=== PATIENT | male | born 1990 | race Caucasian/White ===

== ENCOUNTER 2020-03-13 15:20 | Emergency (ER) | payer OTHER ==
[2020-03-13 15:26] VITALS: RESP 20; TEMP 98.8
[2020-03-13] MEDS ORDERED: KETOROLAC 30 MG/ML 1 ML VIAL IM STA (15:39)
[2020-03-13] MEDS ORDERED: ACET/COD 300 MG/30 MG STARTER PACK 6 TAB BTL PO STA (15:39)
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
[2020-03-13 17:58] VITALS: BP 135/85; PULSE 81
== END 2020-03-13 18:06 | disposition home or self-care (01) ==
LOC: EC 15:20
DX: S82.51XA Displaced fracture of medial malleolus of right tibia, initial encounter for closed fracture (principal); S82.831A Other fracture of upper and lower end of right fibula, initial encounter for closed fracture; F17.200 Nicotine dependence, unspecified, uncomplicated; V28.4XXA Motorcycle driver injured in noncollision transport accident in traffic accident, initial encounter; Y93.55 Activity, bike riding
CPT/HCPCS: 73590; 73562; 73610; 99284; 29505; 96372; J1885

== ENCOUNTER → 2020-03-15 | Outpatient (CLI) | payer SELFPAY ==
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
== END | disposition home or self-care (01) ==
LOC: RADCTMAIN 09:41
PROVIDERS: ATTEND Orthopaedic Surgery Orthopaedic Surgery of the Spine
DX: S82.861A Displaced Maisonneuve's fracture of right leg, initial encounter for closed fracture (principal); S82.891A Other fracture of right lower leg, initial encounter for closed fracture; S82.51XA Displaced fracture of medial malleolus of right tibia, initial encounter for closed fracture; S93.431A Sprain of tibiofibular ligament of right ankle, initial encounter

== ENCOUNTER → 2020-03-21 | Outpatient (CLI) | payer SELFPAY | END | disposition home or self-care (01) | LOC: LABWHC1 11:22 | PROVIDERS: ATTEND Orthopaedic Surgery | DX: U07.1 COVID-19 (principal) | CPT/HCPCS: 87635 ==

== ENCOUNTER 2020-03-23 06:37 | Day surgery (SDC) | payer OTHER ==
[2020-03-21 15:54] VITALS: BMI 32.1
[~2020-03-23 06:37] MED LIST: HYDROmorphone 0.5 MG/0.5 ML SYRINGE IVP PRN; LACTATED RINGERS 1,000 ML IV SCH; LIDOCAINE 1% (10MG/ML) FOR IV START INTRADERMA PRN; ONDANSETRON 4 MG/2 ML VIAL IVP ONE
[2020-03-23] MEDS ORDERED: fentaNYL (PF) 50 MCG/ML 2 ML AMP IVP ONE (07:07)
[2020-03-23] MEDS ORDERED: MIDAZOLAM 2 MG/2 ML VIAL IVP ONE (07:07)
[2020-03-23] MEDS ORDERED: DEXAMETHASONE SOD PHOSPHATE 10 MG/ML 1 ML VIAL IV ONE (07:21)
[2020-03-23] MEDS ORDERED: MIDAZOLAM 2 MG/2 ML VIAL ONE (07:56)
[2020-03-23] MEDS ORDERED: PROPOFOL 10 MG/ML 20 ML VIAL IV ONE (07:56)
[2020-03-23] MEDS ORDERED: KETOROLAC 30 MG/ML 1 ML VIAL ONE (07:56)
[2020-03-23] MEDS ORDERED: fentaNYL (PF) 50 MCG/ML 2 ML AMP ONE (07:56)
[2020-03-23] MEDS ORDERED: ROPIVACAINE 5 MG/ML 30 ML VIAL ONE (07:56)
[2020-03-23] MEDS ORDERED: LIDOCAINE 2%-EPI 1:100,000 20 ML VIAL ONE (07:56)
[2020-03-23] MEDS ORDERED: LIDOCAINE 1% INJ 10MG/ML (20 ML MDV) ONE (07:56)
--- NOTE | 2020-03-23 08:00 | P.ANPRN ---
Procedure Note - Anesthesia - Nerve Block Performed Right Popliteal Single Time Out Performed: Yes Date of Procedure: 03/23/20 Procedure Start Time: 07:07 Procedure Stop Time: 07:14 Location of Patient: PreOp Indication: Acute Post-Operative Pain, Dx/Pain Location (Right Ankle Pain) Sedation Type: Sedate with meaningful contact maintained Preparation: Sterile Prep Position: Supine Catheter: None Needle Types: Pajunk Needle Gauge: 18 Ultrasound used to visualize needle placement: Yes Ultrasound used to observe medication spread: Yes Injectate: Other (see comment) (10ml 0.5% Ropivacaine + 10ml 2% Lidocaine with 1:200,000 epi + 4mg Dexamethasone) Blood Aspirated: No Pain Paresthesia on Injection Noted: No Resistance on Injection: Normal Image Stored and Saved: Yes Events: Uneventful and Well Tolerated
--- NOTE | 2020-03-23 08:01 | P.ANPRN ---
Procedure Note - Anesthesia - Nerve Block Performed Right Adductor Canal Single Time Out Performed: Yes Date of Procedure: 03/23/20 Procedure Start Time: :07 Procedure Stop Time: 07:14 Location of Patient: PreOp Indication: Acute Post-Operative Pain, Dx/Pain Location (Right Ankle Pain), Requested by Surgeon Sedation Type: Sedate with meaningful contact maintained Preparation: Sterile Prep Position: Supine Catheter: None Needle Types: Pajunk Needle Gauge: 18 Ultrasound used to visualize needle placement: Yes Ultrasound used to observe medication spread: Yes Injectate: Other (see comment) (10ml 0.5% Ropivacaine + 10ml 2% Lidocaine with 1:200,000 epi + 4mg Dexamethasone) Blood Aspirated: No Pain Paresthesia on Injection Noted: No Resistance on Injection: Normal Image Stored and Saved: Yes Events: Uneventful and Well Tolerated
[2020-03-23] MEDS ORDERED: LACTATED RINGERS 1,000 ML IV ONE (09:20)
--- NOTE | 2020-03-23 09:29 | FL ---
EXAMINATION TYPE: FL guidance operating room, XR ankle limited RT DATE OF EXAM: 03/23/2020 CLINICAL HISTORY: Right ankle fracture. TECHNIQUE: Fluoroscopy. Limited intraoperative views right ankle. COMPARISON: Right ankle x-ray March 13, 2020. FINDINGS: Fluoroscopic guidance was provided during open reduction internal fixation procedure perfo rmed by Dr. Diaz. A total of 1.17 minute of fluoroscopic time was utilized during the procedure and 6 spot intraoperative images are acquired. Intraoperative images obtained show placement of lateral fixating plate through the distal fibular di aphysis with single radiodense fixating screw through the distal tibia and more inferior radiolucent distal fixating screw. There is placement of fixating screw through the medial malleolus displaced fr acture. Satisfactory alignment is seen on intraoperative images obtained. IMPRESSION: As Above.
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
[2020-03-23 09:59] VITALS: TEMP 98.6
[2020-03-23 10:36] VITALS: RESP 16
[2020-03-23] MEDS ORDERED: HYDROcodone/APAP 7.5-325MG 1 EACH TAB PO ONE (10:48)
[2020-03-23 10:53] VITALS: BP 134/87; PULSE 89
== END 2020-03-23 11:18 | disposition home or self-care (01) ==
LOC: OR 06:37
PROVIDERS: ATTEND Orthopaedic Surgery
DX: S82.841A Displaced bimalleolar fracture of right lower leg, initial encounter for closed fracture (principal); S82.861A Displaced Maisonneuve's fracture of right leg, initial encounter for closed fracture; S82.831A Other fracture of upper and lower end of right fibula, initial encounter for closed fracture; S93.431A Sprain of tibiofibular ligament of right ankle, initial encounter; F17.210 Nicotine dependence, cigarettes, uncomplicated; X58.XXXA Exposure to other specified factors, initial encounter
CPT/HCPCS: 27766; 27829; 64447; 64450; 76942; 73600; C1713; J2250; J1100; J0690; J2405; J2001; J3010; J1885; J2795; J2704; 64445

== ENCOUNTER 2022-03-20 16:49 | Emergency (ER) | payer BC, OTHER ==
[2022-03-20 17:06] VITALS: BP 133/89; PULSE 78; RESP 20; TEMP 99.1
[2022-03-20] MEDS ORDERED: SODIUM CHLORIDE 0.9% 1,000 ML IV STA (18:23)
[2022-03-20] MEDS ORDERED: KETOROLAC 15 MG/ML 1 ML VIAL IVP STA ×2 (18:23→19:41)
--- NOTE | 2022-03-20 18:30 | ED ---
ENT HPI - General Chief complaint: Headache Stated complaint: Headache, Fever, Body aches, Throat swelling Time Seen by Provider: 03/20/22 18:16 Source: patient, RN notes reviewed Mode of arrival: ambulatory Limitations: no limitations - History of Present Illness Initial comments: This is a 31-year-old male who presents emergency department for a headache, body aches, sore throat, and fevers. Symptoms began yesterday. Denies any sick contacts. He is not vaccinated against COVID-19. He has not checked his temperature, but states that he felt hot. He is not currently taking anything to treat his symptoms. He does report intermittent nausea. Denies any chest pain, shortness of breath, or coughing. MD complaint: sore throat - Related Data Previous Rx's Medication Instructions Recorded Ibuprofen [Motrin] 600 mg PO Q8HR PRN #30 tab 03/13/20 Aspirin 325 mg PO DAILY #14 tab 03/23/20 Docusate [Colace] 100 mg PO BID #28 capsule 03/23/20 HYDROcodone/APAP 10-325MG [[place] 1 tab PO Q4HR PRN #42 tab 03/23/20 10-325] Allergies Allergy/AdvReac Type Severity Reaction Status Date / Time No Known Allergies Allergy Verified 03/20/22 17:06 Review of Systems ROS Statement: Those systems with pertinent positive or pertinent negative responses have been documented in the HPI. ROS Other: All systems not noted in ROS Statement are negative. Constitutional: Reports: fever. Denies: chills ENT: Reports: throat pain. Denies: ear pain Respiratory: Denies: cough, dyspnea Cardiovascular: Denies: chest pain, palpitations Gastrointestinal: Denies: abdominal pain, nausea, vomiting, diarrhea Genitourinary: Denies: urgency, dysuria Musculoskeletal: Reports: arthralgia, myalgia. Denies: back pain Skin: Denies: rash Neurological: Reports: headache Past Medical History Past Medical History: No Reported History Additional Past Medical History / Comment(s): FX RIGHT ANKLE 03/13/20- HAS SPLINT ON AND IS USING CRUTCHES. History of Any Multi-Drug Resistant Organisms: None Reported Past Surgical History: No Surgical Hx Reported Additional Past Anesthesia/Blood Transfusion Reaction / Comment(s): PATIENT HAS NEVER RECEIVED ANESTHESIA Past Psychological History: No Psychological Hx Reported Smoking Status: Vaper Past Alcohol Use History: None Reported Past Drug Use History: Marijuana - Past Family History Father Family Medical History: Cancer Additional Family Medical History / Comment(s): THROAT CANCER General Exam Limitations: no limitations General appearance: alert, in distress Head exam: Present: atraumatic, normocephalic, normal inspection Neck exam: Present: normal inspection. Absent: tenderness, meningismus, lymphadenopathy Respiratory exam: Present: normal lung sounds bilaterally. Absent: respiratory distress, wheezes, rales, rhonchi, stridor Cardiovascular Exam: Present: regular rate, normal rhythm, normal heart sounds. Absent: systolic murmur, diastolic murmur, rubs, gallop, clicks Neurological exam: Present: alert, oriented X3, CN II-XII intact Psychiatric exam: Present: normal affect, normal mood Skin exam: Present: warm, dry, intact, normal color. Absent: rash Course Vital Signs 03/20/22 17:04 Temperature 99.1 F Pulse Rate 78 Respiratory 20 Rate Blood Pressure 133/89 O2 Sat by Pulse 99 Oximetry Medical Decision Making - Medical Decision Making This is a 31-year-old male who presents to the emergency department for upper respiratory symptoms and body aches. Patient tested positive for COVID-19. Patient received antibody infusion and was monitored for an hour afterwards without any issues. Patient rehydrated with 1L normal saline and given Toradol for headache and body aches, which he states did provide relief. He was instructed to quarantine for 5 days and practice strict precautions for 10 days, including always wearing a mask around others and avoiding travel. Return precautions reviewed in depth, the patient is instructed to return to the emergency department with any new, worsening, or concerning symptoms. Patient verbalized understanding. This case was discussed in detail with the attending ED physician. Presentation, findings, and treatment plan discussed in detail as well. - Lab Data Lab Results 03/20/22 Range/Units 17:07 Coronavirus (PCR) Detected A (Not Detectd) Disposition Clinical Impression: COVID-19 Disposition: HOME SELF-CARE Instructions (If sedation given, give patient instructions): COVID-19 (Coronavirus Disease 2019) (ED), How to Recover from COVID-19 at Home (ED) Additional Instructions: Return to the emergency department with any new, worsening, or concerning symptoms. Quarantine for 5 days and follow extra precautions for 10 days, including always wearing a mask around others and avoiding travel. Remain well- hydrated and use [id number] treatment as needed for symptoms. Is patient prescribed a controlled substance at d/c from ED?: No Referrals: None,Stated [Primary Care Provider] - 1-2 days
[2022-03-20] MEDS ORDERED: BEBTELOVIMAB (EUA) 175 MG/2 ML VIAL IV ONE (18:45)
== END 2022-03-20 21:09 | disposition home or self-care (01) ==
LOC: EC 16:49
DX: U07.1 COVID-19 (principal); F17.209 Nicotine dependence, unspecified, with unspecified nicotine-induced disorders
CPT/HCPCS: 87635; 99284; 96374; 96361; J1885; Q0222

== ENCOUNTER 2023-08-28 21:36 | Emergency (ER) | payer BC, OTHER ==
[2023-08-28 21:43] VITALS: RESP 18
--- NOTE | 2023-08-28 22:06 | XR ---
EXAMINATION TYPE: XR chest 2V DATE OF EXAM: 08/28/2023 10:02 PM CLINICAL INDICATION:Male, 32 years old with history of chest pain; [facility] COMPARISON: None TECHNIQUE: XR chest 2V Frontal and lateral views of the chest. FINDINGS: Lungs/Pleura: There is no evidence of pleural effusion, focal consolidation, or pneumothorax. Pulmonary vascularity: Unremarkable. Heart/mediastinum: Cardiomediastinal silhouette is unremarkable. Musculoskeletal: No acute osseous pathology. IMPRESSION: No acute cardiopulmonary disease/process.
[2023-08-28 22:15] LABS: Basophils # (A) 0.1 k/uL (0-0.2); Basophils % (A) 1 %; Eosinophils # (A) 0.3 k/uL (0-0.7); Eosinophils % (A) 3 %; HCT 44.3 % (39.0-53.0); HGB 14.8 gm/dL (13.0-17.5); Lymphocytes # (A) 3.6 k/uL (1.0-4.8); Lymphocytes % (A) 31 %; MCHC 33.3 g/dL (31.0-37.0); Mean Platelet Volume 8.4; Monocytes # (A) 0.6 k/uL (0-1.0); Monocytes % (A) 5 %; Neutrophils % (A) 59 %; Platelet Count 238 k/uL (150-450); RDW 12.9 % (11.5-15.5); WBC 11.9 k/uL (3.8-10.6)
[2023-08-28 22:30] LABS: ALT 43 U/L (4-49); AST 33 U/L (17-59); African American GFR (CKD) 89 (>60 ml/min/1.73 sqM); Albumin 4.6 g/dL (3.5-5.0); Alkaline Phosphatase 81 U/L (38-126); Anion Gap 11 mmol/L; Blood Urea Nitrogen 18 mg/dL (9-20); Calcium 9.5 mg/dL (8.4-10.2); Carbon Dioxide 25 mmol/L (22-30); Chloride 103 mmol/L (98-107); Glucose 158 mg/dL (74-99); Non-African American GFR(CKD) 77 (>60 ml/min/1.73 sqM); Potassium 3.4 mmol/L (3.5-5.1); Sodium 139 mmol/L (137-145); Total Bilirubin 0.3 mg/dL (0.2-1.3); Total Protein 7.5 g/dL (6.3-8.2)
[2023-08-28 22:31] LABS: INR 0.9 (<1.2); Partial Thromboplastin Time 22.9 sec (22.0-30.0); Prothrombin Time 9.7 sec (9.0-12.0)
[2023-08-29] MEDS ORDERED: KETOROLAC 15 MG/ML 1 ML VIAL IM STA (00:37)
--- NOTE | 2023-08-29 03:01 | ED ---
General Adult HPI - General Chief complaint: Chest Pain Stated complaint: Chest pain Time Seen by Provider: 08/28/23 23:36 Source: patient, RN notes reviewed, old records reviewed Mode of arrival: wheelchair Limitations: no limitations - History of Present Illness Initial comments: Patient is a 32-year-old male presents emergency Department complaining of midsternal chest pain. Started suddenly prior to arrival. States it as sharp located in the sternum. Worse with movement. Workup was started in triage. States is somewhat improving at this time. Denies any shortness of breath. Worse on deep inspiration. Denies any abdominal pain, nausea, vomiting. His no other acute complaints at this time. No significant cardiac history. Presents for further evaluation.Patient states he does have a history of anxiety which may have made the discomfort worse. Presents for further evaluation. - Related Data Previous Rx's Medication Instructions Recorded Ibuprofen [Motrin] 600 mg PO Q8HR PRN #30 tab 03/13/20 Aspirin 325 mg PO DAILY #14 tab 03/23/20 Docusate [Colace] 100 mg PO BID #28 capsule 03/23/20 HYDROcodone/APAP 10-325MG [[place] 1 tab PO Q4HR PRN #42 tab 03/23/20 10-325] Allergies Allergy/AdvReac Type Severity Reaction Status Date / Time No Known Allergies Allergy Verified 08/28/23 21:37 Review of Systems ROS Statement: Those systems with pertinent positive or pertinent negative responses have been documented in the HPI. Review of Systems: CONST: Denies fever EYES: Denies blurry vision ENT: Denies nasal congestion C/V: Endorses chest pain RESP: Denies shortness of breath GI: Denies abdominal pain : Denies dysuria SKIN: Denies rash. MSK: Denies joint pain. NEURO: Denies headache ROS Other: All systems not noted in ROS Statement are negative. Past Medical History Past Medical History: No Reported History Additional Past Medical History / Comment(s): FX RIGHT ANKLE 03/13/20- HAS SPLINT ON AND IS USING CRUTCHES. History of Any Multi-Drug Resistant Organisms: None Reported Past Surgical History: No Surgical Hx Reported Additional Past Anesthesia/Blood Transfusion Reaction / Comment(s): PATIENT HAS NEVER RECEIVED ANESTHESIA Past Psychological History: No Psychological Hx Reported Smoking Status: Vaper Past Alcohol Use History: None Reported Past Drug Use History: Marijuana - Past Family History Father Family Medical History: Cancer Additional Family Medical History / Comment(s): THROAT CANCER General Exam - General Exam Comments Initial Comments: General: Appears in no acute distress. Appears anxious HEAD: Normal with no signs of head trauma. EYES: PERRLA, EOMI, conjunctiva normal, no discharge. ENT: Hearing grossly intact, normal oropharynx. RESPIRATORY: Clear breath sounds bilaterally. No wheezes, rales, or rhonchi. C/V: Regular rate and rhythm. S1 and S2 auscultated, no edema, peripheral pulses 2+ and intact throughout. Reproducible chest pain on palpation. ABD: Abd is soft, nontender, nondistended EXT: Normal range of motion, no obvious deformity SKIN: No rashes or lesions observed on exposed skin. NEURO: Alert and oriented 4. Limitations: no limitations Course Vital Signs 08/28/23 08/29/23 08/29/23 21:38 00:11 03:18 Temperature 98.1 F 98.2 F 98.1 F Pulse Rate 121 H 76 92 Respiratory 18 18 18 Rate Blood Pressure 186/108 153/102 149/94 O2 Sat by Pulse 100 99 98 Oximetry Medical Decision Making - Medical Decision Making Was pt. sent in by a medical professional or institution (, PA, MASTER OF CEREMONIES, urgent care, hospital, or care home...) When possible be specific @ -No Did you speak to anyone other than the patient for history (EMS, parent, family, police, friend...)? What history was obtained from this source @ -No Did you review nursing and triage notes (agree or disagree)? Why? @ -I reviewed and agree with nursing and triage notes Were old charts reviewed (outside hosp., previous admission, EMS record, old EKG, old radiological studies, urgent care reports/EKG's, care home records)? Report findings @ -No old charts were reviewed Differential Diagnosis (chest pain, altered mental status, abdominal pain women, abdominal pain men, vaginal bleeding, weakness, fever, dyspnea, syncope, headache, dizziness, GI bleed, back pain, seizure, CVA, palpatations, mental health, musculoskeletal)? @ -Differential Chest Pain: Stable Angina, Unstable Angina, STEMI, NSTEMI Aortic Dissection, Pneumothorax, Musculoskeletal, Esophageal Spasm GERD, Cholecystitis, Pancreatitis, Zoster, this is not meant to be an all-inclusive list. EKG interpreted by me (3pts min.). @ -As above X-rays interpreted by me (1pt min.). @ -Reveals no obvious acute cardio pulmonary process. CT interpreted by me (1pt min.). @ -None done U/S interpreted by me (1pt. min.). @ -None done What testing was considered but not performed or refused? (CT, X-rays, U/S, labs)? Why? @ -None What meds were considered but not given or refused? Why? @ -None Did you discuss the management of the patient with other professionals (professionals i.e. DrChanelle, PA, MASTER OF CEREMONIES, lab, RT, psych nurse, social work program coordinator, mechanical equipment sales engineer, teacher, patrol community service officer, family caseworker)? Give summary @ -No Was smoking cessation discussed for >3mins.? @ -No Was critical care preformed (if so, how long)? @ -No Were there social determinants of health that impacted care today? How? (Homelessness, low income, unemployed, alcoholism, drug addiction, moody sportation, low edu. Level, literacy, decrease access to med. care, senior living, rehab)? @ -No Was there de-escalation of care discussed even if they declined (Discuss DNR or withdrawal of care, Hospice)? DNR status @ -No What co-morbidities impacted this encounter? (DM, HTN, Smoking, COPD, CAD, Cancer, CVA, ARF, Chemo, Hep., AIDS, mental health diagnosis, sleep apnea, morbid obesity)? @ -None Was patient admitted / discharged? Hospital course, mention meds given and route, prescriptions, significant lab abnormalities, going to OR and other pertinent info. @ -Based on the patient's presentation and physical exam, I'm concerned for chest pain for the patient's current symptoms. We will obtain cardiac workup. Workup was started in triage. EKG unremarkable. Chest x-ray unremarkable. Patient's labs remarkable for undetectable troponin. Remainder of labs are w ithin acceptable limits. Vital signs within acceptable limits. Discuss it is likely chest wall pain. I evaluated the patient in the waiting room. He was given Toradol for pain control as it doesn't to be chest wall pain we will obtain a second troponin. Patient was in agreement with this plan. Patient's repeat troponin is undetectable. Symptoms resolved following Toradol. Discuss is likely chest wall pain. He was in agreement this plan. Strict return precautions discussed. Diagnosis costochondritis. I instructed the patient to follow up with their PCP in the next 1-3 days. I explained that the patient should return to the emergency department if they experience any worsening symptoms. Strict return precautions were discussed with the patient. The patient expressed understanding of these instructions. I answered all questions that the patient had. The patient was discharged home in good condition with their prescriptions and follow up information. Undiagnosed new problem with uncertain prognosis? @ -No Drug Therapy requiring intensive monitoring for toxicity (Heparin, Nitro, Insulin, Cardizem)? @ -No Were any procedures done? @ -No Diagnosis/symptom? @ -Costochondritis Acute, or Chronic, or Acute on Chronic? @ -Acute Uncomplicated (without systemic symptoms) or Complicated (systemic symptoms)? @ -Uncomplicated Side effects of treatment? @ -No Exacerbation, Progression, or Severe Exacerbation? @ -No Poses a threat to life or bodily function? How? (Chest pain, [place], [place], pneumonia, PE, COPD, DKA, ARF, appy, cholecystitis, CVA, Diverticulitis, Homicidal, Suicidal, threat to staff... and all critical care pts) @ -No - Lab Data Result diagrams: 08/28/23 21:53 08/28/23 21:53 Lab Results 08/28/23 08/28/23 08/28/23 Range/Units 21:53 21:53 21:53 WBC 11.9 H (3.8-10.6) k/uL RBC 5.10 (4.30-5.90) m/uL Hgb 14.8 (13.0-17.5) gm/dL Hct 44.3 (39.0-53.0) % MCV 87.0 (80.0-100.0) fL MCH 29.0 (25.0-35.0) pg MCHC 33.3 (31.0-37.0) g/dL RDW 12.9 (11.5-15.5) % Plt Count 238 (150-450) k/uL MPV 8.4 Neutrophils % 59 % Lymphocytes % 31 % Monocytes % 5 % Eosinophils % 3 % Basophils % 1 % Neutrophils # 7.0 (1.3-7.7) k/uL Lymphocytes # 3.6 (1.0-4.8) k/uL Monocytes # 0.6 (0-1.0) k/uL Eosinophils # 0.3 (0-0.7) k/uL Basophils # 0.1 (0-0.2) k/uL PT 9.7 (9.0-12.0) sec INR 0.9 (<1.2) APTT 22.9 (22.0-30.0) sec D-Dimer <0.17 (<0.60) mg/L FEU Sodium 139 (137-145) mmol/L Potassium 3.4 L (3.5-5.1) mmol/L Chloride 103 (98-107) mmol/L Carbon Dioxide 25 (22-30) mmol/L Anion Gap 11 mmol/L BUN 18 (9-20) mg/dL Creatinine 1.22 (0.66-1.25) mg/dL Est GFR (CKD-EPI)AfAm 89 (>60 ml/min/1.73 sqM) Est GFR (CKD-EPI)NonAf 77 (>60 ml/min/1.73 sqM) Glucose 158 H (74-99) mg/dL Calcium 9.5 (8.4-10.2) mg/dL Total Bilirubin 0.3 (0.2-1.3) mg/dL AST 33 (17-59) U/L ALT 43 (4-49) U/L Alkaline Phosphatase 81 (38-126) U/L Troponin I (0.000-0.034) ng/mL Total Protein 7.5 (6.3-8.2) g/dL Albumin 4.6 (3.5-5.0) g/dL 08/28/23 08/29/23 Range/Units 21:53 00:50 WBC (3.8-10.6) k/uL RBC (4.30-5.90) m/uL Hgb (13.0-17.5) gm/dL Hct (39.0-53.0) % MCV (80.0-100.0) fL MCH (25.0-35.0) pg MCHC (31.0-37.0) g/dL RDW (11.5-15.5) % Plt Count (150-450) k/uL MPV Neutrophils % % Lymphocytes % % Monocytes % % Eosinophils % % Basophils % % Neutrophils # (1.3-7.7) k/uL Lymphocytes # (1.0-4.8) k/uL Monocytes # (0-1.0) k/uL Eosinophils # (0-0.7) k/uL Basophils # (0-0.2) k/uL PT (9.0-12.0) sec INR (<1.2) APTT (22.0-30.0) sec D-Dimer (<0.60) mg/L FEU Sodium (137-145) mmol/L Potassium (3.5-5.1) mmol/L Chloride (98-107) mmol/L Carbon Dioxide (22-30) mmol/L Anion Gap mmol/L BUN (9-20) mg/dL Creatinine (0.66-1.25) mg/dL Est GFR (CKD-EPI)AfAm (>60 ml/min/1.73 sqM) Est GFR (CKD-EPI)NonAf (>60 ml/min/1.73 sqM) Glucose (74-99) mg/dL Calcium (8.4-10.2) mg/dL Total Bilirubin (0.2-1.3) mg/dL AST (17-59) U/L ALT (4-49) U/L Alkaline Phosphatase (38-126) U/L Troponin I <0.012 <0.012 (0.000-0.034) ng/mL Total Protein (6.3-8.2) g/dL Albumin (3.5-5.0) g/dL - EKG Data -: EKG Interpreted by Me EKG Comments: 12-lead Electrocardiogram Interpretation Note EKG was reviewed and interpreted by myself. 12-lead ECG performed at 2140 is interpreted by me as revealing sinus tachycardia at a rate of 115 beats per minute. [place] is normal. [place] interval is 182 ms, QRS duration is 90 ms, QTc is 389 ms.. There were no ST or T wave abnormalities to suggest myocardial isc hemia or injury. R wave progression across the precordium was satisfactory. By my interpretation this EKG is non-diagnostic for acute ischemia. Disposition Clinical Impression: Costochondritis Disposition: HOME SELF-CARE Condition: Good Instructions (If sedation given, give patient instructions): Costochondritis (ED) Is patient prescribed a controlled substance at d/c from ED?: No Referrals: None,Stated [Primary Care Provider] - 1-2 days Time of Disposition: 02:45
[2023-08-29 03:25] VITALS: BP 149/94; PULSE 92; TEMP 98.1
== END 2023-08-29 03:00 | disposition home or self-care (01) ==
LOC: EC 21:36
DX: M94.0 Chondrocostal junction syndrome [Tietze] (principal); R00.0 Tachycardia, unspecified; F17.290 Nicotine dependence, other tobacco product, uncomplicated; F12.90 Cannabis use, unspecified, uncomplicated
CPT/HCPCS: 36415; 71046; 80053; 84484; 85025; 85379; 85610; 85730; 93005; 96372; 99285